=== PATIENT | female | born 1985 | race Hispanic/Latino ===

== ENCOUNTER 2023-12-15 05:29 | Inpatient (IN) | payer MEDICAID, OTHER ==
[2023-12-15] MEDS ORDERED: Carboprost 250 MCG/ML AMP IM PRN (05:40)
[2023-12-15] MEDS ORDERED: Diphenoxylate HCl/Atropine Tablet PO PRN (05:40)
[2023-12-15] MEDS ORDERED: Promethazine HCl 25 MG/ML VIAL IM PRN ×2 (05:40→11:07)
[2023-12-15] MEDS ORDERED: Ondansetron PF 4 MG/2 ML Vial IVP PRN ×2 (05:40→11:07)
[2023-12-15] MEDS ORDERED: Acetaminophen 500 MG TAB PO PRN (05:40)
[2023-12-15] MEDS ORDERED: Butorphanol Tartrate 1 MG/ML VIAL SLOW IVP PRN (05:40)
[2023-12-15] MEDS ORDERED: fentaNYL 50 mcg/mL 1 mL Vial SLOW IVP PRN (05:40)
[2023-12-15] MEDS ORDERED: Docusate 100 MG CAP PO PRN (05:40)
[2023-12-15] MEDS ORDERED: hydrALAZINE 20 MG/ML VIAL SLOW IVP PRN ×2 (05:40→22:07)
[2023-12-15] MEDS ORDERED: Methylergonovine 0.2 MG/ML VIAL IM PRN (05:40)
[2023-12-15] MEDS ORDERED: Lidocaine 1% (PF) 30 ML VIAL SC PRN (05:40)
[2023-12-15] MEDS ORDERED: Misoprostol 100 MCG TAB VAG SCH (05:45)
[2023-12-15] MEDS ORDERED: Oxytocin 30 units/NS 500 ML 500 ML IV SCH (05:45)
[2023-12-15 06:07] VITALS: BMI 41.9
[2023-12-15] MEDS: Lactated Ringer's 1,000 ML IV SCH (06:47)
[2023-12-15 07:09] LABS: Hematocrit 32.5 % (34.9-44.5); Hemoglobin 10.9 g/dL (12.0-15.5); Mean Corpuscular HGB CONC 33.5 g/dL (32.0-36.0); Mean Corpuscular Hemoglobin 26.1 pg (27.0-33.0); Mean Corpuscular Volume 77.9 fL (81.6-98.3); Mean Platelet Volume 11.4 fL (7.4-10.4); Platelet Count 262 10x3/uL (150-450); RBC Distribution Width 17.4 % (11.5-14.5); Red Blood Cell (RBC) Count 4.17 10x6/uL (3.90-5.03); White Blood Cell (WBC) Count 6.3 10x3/uL (3.5-10.5)
[2023-12-15 07:50] LABS: Syphilis Antibody Nonreactive (Nonreactive); Syphilis Antibody Index 0.06 S/CO (<1.00 Non-Reactive)
[2023-12-15 07:52] LABS: HBsAg Index 0.18 S/CO (0-0.99); Hep B Surf Ag - L&D Non-Reactive S/CO (NonReactive)
[2023-12-15] MEDS: Penicillin G Potassium 5 MILL.UNITS in Sodium Chloride 0.9% 100 ML IVPB SCH (08:16)
[2023-12-15] MEDS: Oxytocin 30 units/NS 500 ML 500 ML IV SCH ×2 (10:08→22:36)
[2023-12-15] MEDS ORDERED: Lactated Ringer's 500 ML IV PRN (11:07)
[2023-12-15] MEDS ORDERED: Naloxone HCl 0.4 mg/ml Vial IVP PRN ×2 (11:07)
[2023-12-15] MEDS ORDERED: Moisturizing Cream (Eucerin) 113 GM JAR TOP PRN (11:07)
[2023-12-15] MEDS ORDERED: ePHEDrine Sulfate 50 MG/10 ML VIAL SLOW IVP PRN (11:07)
[2023-12-15] MEDS ORDERED: diphenhydrAMINE 50 MG/ML VIAL IVP PRN (11:07)
[2023-12-15] MEDS ORDERED: Communication Order-Pharmacy FS SCH (11:15)
[2023-12-15] MEDS: Penicillin G 2.5 MILL.units 2.5 MILL.UNITS in Premix 1 BAG IVPB SCH (12:02)
[2023-12-15] MEDS: fentaNYL 2 mcg/Ropivacaine 0.2% Epidural 100 ML CADD EPIDURAL SCH (12:02)
[2023-12-15 12:07] LABS: Glucose 103 mg/dL (70-105)
[2023-12-15 12:30] LABS: HIV (1/2) Antibody/Antigen Non-Reactive (NonReactive)
[2023-12-15] MEDS: Acetaminophen 325 MG TAB PO PRN (18:16)
[2023-12-15] MEDS: Misoprostol 200 MCG TAB PR PRN (22:00)
[2023-12-15] MEDS ORDERED: Bisacodyl 10 MG SUPP PR PRN (22:07)
[2023-12-15] MEDS ORDERED: Misoprostol 200 MCG TAB VAG PRN (22:07)
[2023-12-15] MEDS ORDERED: Lanolin Ointment 7 GM TUBE TOP PRN (22:07)
[2023-12-15] MEDS ORDERED: Milk Of Magnesia 30 ML UDCUP PO PRN (22:07)
[2023-12-15] MEDS ORDERED: Preparation H Ointment 28 GM TUBE PR PRN (22:07)
[2023-12-15 22:11] LABS: Analyzer IN Cardio CS NICU; RapidComm Collect By RN; pH (Cord, venous) 7.245 (7.250-7.350)
[2023-12-15 22:13] LABS: Analyzer IN Cardio CS NICU; RapidComm Collect By RN
[2023-12-15] MEDS: CEFAZOLIN 2 GM in Sodium Chloride 0.9% 100 ML IVPB SCH (22:47)
[2023-12-16] MEDS: Ibuprofen 800 MG TAB PO PRN (00:02)
[2023-12-16] MEDS: Misoprostol 100 MCG TAB VAG SCH (01:07)
[2023-12-16] MEDS: Tranexamic Acid 1,000 MG/10 ML VIAL ONE (01:10)
[2023-12-16] MEDS: Oxytocin 30 units/NS 500 ML 500 ML ONE (01:10)
[2023-12-16] MEDS: Methylergonovine 0.2 MG/ML VIAL ONE (01:10)
[2023-12-16] MEDS: Carboprost 250 MCG/ML AMP ONE (01:10)
[2023-12-16] MEDS: Misoprostol 200 MCG TAB ONE (01:10)
[2023-12-16] MEDS: Ibuprofen 800 MG TAB PO SCH ×2 (01:11→05:55)
[2023-12-16] MEDS: Benzocaine-Menthol 82.5 ML CAN TOP PRN (01:39)
[2023-12-16] MEDS: HYDROcodone/Acetaminophen 5/325 mg Tablet PO PRN (02:37)
[2023-12-16 03:57] LABS: #Basophils 0.02 10x3/uL (0.0-0.2); #Eosinphils 0.02 10x3/uL (0.0-0.5); #Monocytes 1.03 10x3/uL (0.0-1.1); #Neutrophils 8.56 10x3/uL (1.5-8.4); %Basophils 0.2 % (0.0-2.0); %Eosinophils 0.2 % (0.0-6.0); %Lymphocytes 15.7 % (18.0-47.0); %Neutrophils 74.6 % (40.0-75.0); Hematocrit 27.3 % (34.9-44.5); Hemoglobin 8.9 g/dL (12.0-15.5); Mean Corpuscular HGB CONC 32.6 g/dL (32.0-36.0); Mean Corpuscular Hemoglobin 26.1 pg (27.0-33.0); Mean Corpuscular Volume 80.1 fL (81.6-98.3); Mean Platelet Volume 11.5 fL (7.4-10.4); Platelet Count 227 10x3/uL (150-450); RBC Distribution Width 17.3 % (11.5-14.5); Red Blood Cell (RBC) Count 3.41 10x6/uL (3.90-5.03); White Blood Cell (WBC) Count 11.5 10x3/uL (3.5-10.5)
[2023-12-16] MEDS: fentaNYL/Ropivacaine Epidural 100 ML ONE (07:43)
[2023-12-16] MEDS: Ferrous Sulfate 325 MG TAB PO SCH (08:35)
[2023-12-16] MEDS: Docusate 100 MG CAP PO SCH (08:35)
[2023-12-16] MEDS: Polyethylene Glycol 3350 17 GM Packet PO SCH (08:36)
[2023-12-16] MEDS: Lidocaine 4% Patch TD SCH (12:03)
[2023-12-16] MEDS ORDERED: CEFAZOLIN 1 GM VIAL SLOW IVP SCH (22:05)
[2023-12-17] MEDS: Transdermal Patch Removal TOP SCH (01:10)
[2023-12-17] MEDS: Boostrix 0.5 ML (Tdap) VIAL (>/=7 yrs of age) IM ONE (07:23)
[2023-12-17 07:47] VITALS: BP 134/71; TEMP 98.3
[2023-12-17] MEDS ORDERED: Bupivacaine 0.25% HCL 30 ML VIAL ONE (08:00)
== END 2023-12-17 13:42 | disposition home or self-care (01) | DRG 768 ==
LOC: CSHLD 05:29 → CSHPED 12-16 00:45
PROVIDERS: ADMIT Family Medicine; ATTEND Family Medicine
PROC: 10E0XZZ Delivery of Products of Conception, External Approach (ICD-10-PCS; principal; 2023-12-15)
PROC: 0DQR0ZZ Repair Anal Sphincter, Open Approach (ICD-10-PCS; 2023-12-15)
PROC: 10907ZC Drainage of Amniotic Fluid, Therapeutic from Products of Conception, Via Natural or Artificial Opening (ICD-10-PCS; 2023-12-15)
PROC: 3E033VJ Introduction of Other Hormone into Peripheral Vein, Percutaneous Approach (ICD-10-PCS; 2023-12-15)
DX: O76 Abnormality in fetal heart rate and rhythm complicating labor and delivery (principal); Z37.0 Single live birth; O70.21 Third degree perineal laceration during delivery, IIIa; O99.824 Streptococcus B carrier state complicating childbirth; O24.429 Gestational diabetes mellitus in childbirth, unspecified control; Z3A.39 39 weeks gestation of pregnancy; O99.02 Anemia complicating childbirth; O13.4 Gestational [pregnancy-induced] hypertension without significant proteinuria, complicating childbirth; O66.0 Obstructed labor due to shoulder dystocia; O26.893 Other specified pregnancy related conditions, third trimester; R07.9 Chest pain, unspecified
CPT/HCPCS: 36415; 36416; 51702; 71045; 82805; 82947; 84484; 85025; 85027; 86780; 86850; 86900; 86901; 87340; 87389; 93005; 93010; J0665; J2540; J2590; J3490; J7120